=== PATIENT | male | born 1980 | race African-American/Black ===

== ENCOUNTER 2021-02-01 14:26 | Emergency (ER) | payer MEDICAID ==
--- NOTE | 2021-02-01 14:41 | EDM.PDOC ---
ED HPI GENERAL MEDICAL PROBLEM - General Chief Complaint: Upper Extremity Injury/Pain Stated Complaint: L SHOULDER PAIN Time Seen by Provider: 02/01/21 14:39 - History of Present Illness INITIAL COMMENTS - FREE TEXT/NARRATIVE: Patient is a 40-year-old male presenting with left shoulder pain. He has a history of hypertension, diabetes and hyperlipidemia on multiple medications including beta-poncho he has not taken any of his medicines in a little over 36 hours. For the last several days he has had some mild discomfort in the first part of the left trap he thought he had slept wrong. Worsened with range of motion of the left shoulder. He then fell a couple days ago and had an acute worsening of the left shoulder pain which now radiates down to the mid humerus. No chest pain no shortness of breath no vertigo no lightheadedness or dizziness no syncope or near syncope. Pain currently 9 out of 10 ROS: General: No fever. ENT: No sore throat. Neck: No neck stiffness. Respiratory: No shortness of breath. Cardiac: No chest pain. Gastrointestinal: No nausea, vomiting or abdominal pain. Musculoskeletal: Per HPI Neurologic: No headache. Left Shoulder Pain Score (Numeric/FACES): 9 - Related Data Allergies Allergy/AdvReac Type Severity Reaction Status Date / Time No Known Allergies Allergy Verified 02/01/21 14:30 Home Meds: Home Meds Enalapril [Vasotec] 5 mg PO BID 02/01/21 [History] Hydrocodone/Acetaminophen [HYDROcodone-Acetaminophen 10-325 MG] 1 each PO TID PRN 4 Days #12 tablet 02/01/21 [Rx] Hydrocodone/Acetaminophen [HYDROcodone-Acetaminophen 10-325 MG] 1 each PO TID PRN 4 Days #12 tablet 02/01/21 [Rx] Insulin Aspart [NovoLOG] 0 unit SQ WITHMEALSANDBED 02/01/21 [History] atorvaSTATin [Lipitor] 20 mg PO BEDTIME 02/01/21 [History] Review of Systems - Review of Systems Review Of Systems: See Below ED EXAM, GENERAL - Physical Exam Exam: See Below Free Text/Narrative:: General Appearance: No acute distress, appears comfortable Skin: No rash HEENT: Normocephalic/atraumatic, sclera anicteric, mucous membranes moist Neck: Normal range of motion, no midline tenderness step-off or deformity Chest and Lungs: Bilateral breath sounds, clear to auscultation Cardiovascular: Tachycardic rate regular rhythm intact distal perfusion Back: No midline tenderness step-off or deformity significant muscular tenderness just medial to the left shoulder blade extending up into the first part of the left trap Musculoskeletal: Median radial and ulnar nerve intact in the left hand 2+ left radial pulse no focal tenderness swelling or deformity is noted in the left hand the left wrist of the left elbow is some tenderness at the head of the humerus he has no pain with gentle small circles of the left shoulder joint or glenohumeral joint moves smoothly but soon as you extend beyond that he has significant pain. Unable to tolerate true empty can test. Neurologic: Awake, alert, no obvious deficits, moving all extremities Psychiatric: Appropriate, cooperative Course - Vital Signs Last Recorded V/S: Last Vital Signs Temp 97.4 F 02/01/21 14:32 Pulse 116 H 02/01/21 15:11 Resp 20 02/01/21 14:32 BP 190/119 H 02/01/21 15:11 Pulse Ox 97 02/01/21 14:32 - Orders/Labs/Meds Meds: Medications Discontinued Medications Generic Name Dose Route Start Last Admin Trade Name Freq PRN Reason Stop Dose Admin Labetalol HCl 100 mg 02/01/21 15:00 02/01/21 15:11 Labetalol 100 Mg Tab PO 02/01/21 15:01 100 mg ONETIME ONE Administration Morphine Sulfate 8 mg 02/01/21 15:00 02/01/21 15:09 Morphine 4 Mg/Ml Vial IM 02/01/21 15:01 8 mg ONETIME ONE Administration Ondansetron HCl 4 mg 02/01/21 15:00 02/01/21 15:10 Ondansetron 4 Mg Tab.Dis PO 02/01/21 15:01 4 mg ONETIME ONE Administration Departure - Departure Time of Disposition: 16:15 Disposition: Home, Self-Care 01 Condition: Good Clinical Impression: Shoulder pain, Hypertension - Discharge Information *PRESCRIPTION DRUG MONITORING PROGRAM REVIEWED*: Yes *COPY OF PRESCRIPTION DRUG MONITORING REPORT IN PATIENT [place]: No Prescriptions: Hydrocodone/Acetaminophen [HYDROcodone-Acetaminophen 10-325 MG] 1 each PO TID PRN 4 Days #12 tablet PRN Reason: severe pain Forms: ED Department Discharge Additional Instructions: Your x-ray today showed no broken bones. You have concerned that you have injured your rotator cuff. You can use the sling as you need to for comfort. Please take all of your normal medications tonight except for the labetalol. Do not take your next dose of labetalol until tomorrow morning. Please be sure to follow-up with your primary care office as well as orthopedic surgery clinic. If you develop any dizziness, chest pain, shortness of breath, severe headache or any other symptoms that concern you please return to the emergency department immediately. [facility] - Primary Care [address] [place] [id number] [address] [facility] Professional Building [address] [facility], [address] [place] [address] The following information is given to patients seen in the emergency department who are being discharged to home. This information is to outline your options for follow-up care. We provide all patients seen in our emergency department with a follow-up referral. The need for follow-up, as well as the timing and circumstances, are variable depending upon the specifics of your emergency department visit. If you don't have a primary care physician on staff, we will provide you with a referral. We always advise you to contact your personal physician following an emergency department visit to inform them of the circumstance of the visit and for follow-up with them and/or the need for any referrals to a consulting specialist. The emergency department will also refer you to a specialist when appropriate. This referral assures that you have the opportunity for follow-up care with a specialist. All of these measure are taken in an effort to provide you with optimal care, which includes your follow-up. Under all circumstances we always encourage you to contact your private physician who remains a resource for coordinating your care. When calling for follow-up care, please make the office aware that this follow-up is from your recent emergency room visit. If for any reason you are refused follow-up, please contact the [facility] Emergency Department at and asked to speak to the emergency department charge nurse. Sepsis Event Note (ED) - Evaluation Sepsis Screening Result: No Definite Risk - Focused Exam Vital Signs: Vital Signs Temp Pulse Pulse Resp BP BP Pulse Ox 02/01/21 15:11 116 H 190/119 H 02/01/21 14:32 97.4 F 130 H 20 200/114 H 97 - Assessment/Plan Assessment:: 40-year-old male presenting with signs and symptoms that are most consistent with left rotator cuff injury but given direct trauma x-rays pending. Zofran and morphine will be given for pain. Regarding his tachycardia and hypertension I think it is likely related to pain and lack of his medications. We will give him a dose of his labetalol. And we will ensure that he is in fact in sinus rhythm. Possibility of ACS was considered but there is no chest pain no shortness of breath and he is very clear musculoskeletal left shoulder exam findings. Review of telemetry at the time of the available administration reveals a sinus tachycardia with a rate of 118
[2021-02-01] MEDS ORDERED: Labetalol 100 MG Tab PO ONE (15:00)
[2021-02-01] MEDS ORDERED: Ondansetron 4 MG Tab.DIS PO ONE (15:00)
[2021-02-01] MEDS ORDERED: Morphine 4 MG/ML VIAL IM ONE (15:00)
--- NOTE | 2021-02-01 15:56 | CR ---
HISTORY: Fall. TECHNIQUE: Three views of the left shoulder. COMPARISON: No prior. FINDINGS: AC joint degenerative arthrosis. There is deformity of the lateral acromion which is likely chronic. There is no proximal humeral fracture. No glenohumeral joint dislocation. No abnormality within the included left lung. IMPRESSION: 1. No definite acute fracture. 2. No dislocation. 3. Deformity of the acromion is favored to be more chronic. There are adjacent AC joint degenerative changes. Dictated by Virgil Basilio MD @ 02/01/2021 3:55:30 PM (Electronically Signed)
== END 2021-02-01 16:33 | disposition home or self-care (01) ==
LOC: MW.ED 14:26
DX: M25.512 Pain in left shoulder (principal); I10 Essential (primary) hypertension; E11.9 Type 2 diabetes mellitus without complications; E78.5 Hyperlipidemia, unspecified; Z79.899 Other long term (current) drug therapy; Z79.4 Long term (current) use of insulin
CPT/HCPCS: 73030; 96372; 99283; A9270; J2270